=== PATIENT | female | born 1945 | race African-American/Black ===

== ENCOUNTER 2017-02-07 22:07 | Emergency (ER) | payer MEDICARE ==
[~2017-02-07] VITALS: Ht 167.6 cm; Wt 79.0 kg
[2017-02-07] MEDS ORDERED: CHOL100026 PO (22:44)
[2017-02-07] MEDS ORDERED: METF10002 PO (22:44)
[2017-02-07] MEDS ORDERED: AMLO10TA80 PO (22:44)
[2017-02-07] MEDS ORDERED: BENA1TAB18 PO (22:44)
[2017-02-07] MEDS ORDERED: ATOR20TA65 PO (22:44)
[2017-02-07] MEDS ORDERED: DICL75TA5 PO (22:44)
[2017-02-07] MEDS ORDERED: CARV3.1242 PO (22:44)
[2017-02-07] MEDS ORDERED: ASPI-1159 PO (22:44)
[2017-02-07] MEDS ORDERED: PIOG15TA6 PO (22:44)
[2017-02-08 01:06] LABS: BASOPHILS % 0.8 % (0.0-2.0); EOSINOPHILS % 6.1 % (0.0-5.0); HEMATOCRIT. 32.8 % (36.0-48.0); HEMOGLOBIN. 11.4 g/dL (12.0-16.0); LYMPHOCYTES % 20.6 % (20.0-50.0); MEAN CORPUSCULAR VOLUME 91.6 fL (81.0-99.0); MEAN PLATELET VOLUME 8.5 fl (7.4-10.4); MONOCYTES % 7.2 % (2.0-8.0); NEUTROPHILS % 65.3 % (40.0-76.0); PLATELET 243 x1000/uL (130-400); RED BLOOD CELL COUNT 3.58 mill/uL (4.2-5.4)
[2017-02-08 01:08] LABS: CHLORIDE 106 mEq/L (98-107)
[2017-02-08 01:13] LABS: CARBON DIOXIDE 29 mEq/L (21-32); PROTHROMBIN TIME 10.5 sec
[2017-02-08 03:51] VITALS: BP 128/88
== END 2017-02-08 03:59 | disposition home or self-care (01) ==
LOC: ER 22:07
DX: R04.0 Epistaxis (principal); E11.9 Type 2 diabetes mellitus without complications; I10 Essential (primary) hypertension; E78.00 Pure hypercholesterolemia, unspecified; Z79.82 Long term (current) use of aspirin
CPT/HCPCS: 36415; 80048; 85025; 85610; 99284